=== PATIENT | male | born 1960 | race Caucasian/White ===

== ENCOUNTER 2020-12-30 00:44 | Emergency (ER) | payer OTHER ==
[~2020-12-30] VITALS: Ht 182.9 cm; Wt 117.9 kg
[2020-12-30 00:44] VITALS: BP 137/98
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
--- NOTE | 2020-12-30 00:44 | NUR ---
PT DELTA ALS. TAKEN TO BED 8
--- NOTE | 2020-12-30 00:45 | NUR ---
Dr. Richardson examining patient.
[2020-12-30] MEDS ORDERED: MORPHINE SULFATE 4 MG/ML SYR IVP ONE (00:55)
[2020-12-30] MEDS ORDERED: ONDANSETRON 4 MG/2 ML VIAL IVP ONE (00:55)
--- NOTE | 2020-12-30 00:56 | NUR ---
approached patient due to having extreme pain-- increased HR of 160s, diaphoretic. Patient suddenly seized right after calling out to patient which lasted for 10seconds-- called ERMD right as the seizures started
[2020-12-30] MEDS ORDERED: LORazepam 2 MG/ML VIAL ONE ×2 (00:57→00:59)
--- NOTE | 2020-12-30 00:57 | NUR ---
Dr. Richardson examining patient.
--- NOTE | 2020-12-30 00:58 | NUR ---
LEORA Richardson gave verbal order of Ativan 2mg. 2mg of Ativan was dropped and was not usable.
--- NOTE | 2020-12-30 00:59 | NUR ---
Another Ativan 2mg was taken out per ERMD orders and was pushed through IV.
--- NOTE | 2020-12-30 01:05 | NUR ---
Respiratory Therapist at bedside for respiratory intervention.
[2020-12-30 01:06] LABS: BASOPHILS # (AUTO) 0.1 K/uL (0.00-0.22); BASOPHILS % (AUTO) 0.8 % (0.0-2.0); EOSINOPHILS # (AUTO) 0.2 K/uL (0-0.4); EOSINOPHILS % (AUTO) 2.8 % (0.0-4.0); HEMATOCRIT 45.1 % (36-52); HEMOGLOBIN 15.3 g/dL (12.0-18.0); LYMPHOCYTES % (AUTO) 39.1 % (20.5-51.1); MEAN CORPUSCULAR HEMOGLOBIN 31 pg (27-31); MEAN CORPUSCULAR HGB CONC 34 g/dL (33-37); MEAN CORPUSCULAR VOLUME 92.3 fL (80-94); MONOCYTES # (AUTO) 0.7 K/uL (0.8-1.0); MONOCYTES % (AUTO) 8.7 % (1.7-9.3); NEUTROPHILS # (AUTO) 3.8 K/uL (1.8-7.7); NEUTROPHILS % (AUTO) 48.6 % (42.2-75.2); PLATELET COUNT (AUTO) 195 K/uL (140-450); RED BLOOD CELL COUNT(AUTO) 4.89 MIL/uL (4.20-6.10); RED CELL DISTRIBUTION WIDTH 13.6 % (11.6-13.7); WHITE BLOOD COUNT (AUTO) 7.8 K/uL (4.8-10.8)
[2020-12-30] MEDS ORDERED: INTUBATION KIT MC ONE (01:10)
--- NOTE | 2020-12-30 01:13 | NUR ---
COMPRESSIONS INITIATED
[2020-12-30 01:23] LABS: PROTHROMBIN TIME 9.8 secs (10.8-13.4)
[2020-12-30 01:24] LABS: ANION GAP 10.9 (8-16); CARBON DIOXIDE 28.6 mmol/L (21-32); CREATININE 0.9 mg/dL (0.6-1.3); POTASSIUM 3.5 mmol/L (3.5-5.1); TOTAL BILIRUBIN 0.3 mg/dL (0.0-1.0)
[2020-12-30] MEDS ORDERED: EPINEPHrine PFS 0.1 MG/ML SYR IVP ONE (01:28)
--- NOTE | 2020-12-30 01:29 | NUR ---
TIME OF PRONOUNCED BY DR. HERNANDEZ
--- NOTE | 2020-12-30 01:29 | NUR ---
See [facility] [employer] Record and Resuscitation doc tool for resuscitation efforts and medication.
--- NOTE | 2020-12-30 01:39 | NUR ---
PT FAMILY BROUGHT TO CONFERENCE ROOM
--- NOTE | 2020-12-30 01:45 | NUR ---
called [facility], spoke to nic jones,supervisior who began collecting info. stated she would call back with confirmation.
--- NOTE | 2020-12-30 01:48 | NUR ---
Called [facility] and spoke to Deana who began taking info. referral # [id number].
--- NOTE | 2020-12-30 01:57 | NUR ---
DR. HERNANDEZ SPEAKING WITH PT FAMILY
--- NOTE | 2020-12-30 02:15 | NUR ---
spoke to Ethel, pt's . pt picked [facility] in [facility]. 's number [phone]
--- NOTE | 2020-12-30 03:14 | NUR ---
[facility] case picked up by Yoon Acosta, supervisior. case # [id number].
--- NOTE | 2020-12-30 03:24 | NUR ---
[facility] called back and collected info.
--- NOTE | 2020-12-30 04:24 | NUR ---
[facility] [employer] AT BEDSIDE
--- NOTE | 2020-12-30 04:52 | NUR ---
BODY TAKEN BY [facility] [facility] [employer] [facility] [facility]SPORT
[2020-12-30] MEDS ORDERED: LORazepam 2 MG/ML VIAL IVP ONE (05:15)
== END 2020-12-30 01:29 ==
LOC: MED 00:44
DX: I46.9 Cardiac arrest, cause unspecified (principal)
CPT/HCPCS: 31500; 36415; 80053; 84484; 85025; 85610; 85730; 92950; 93005; 96374; 99291; J0171; J2060